=== PATIENT | female | born 1995 | race Caucasian/White ===

== ENCOUNTER 2021-11-09 18:43 | Inpatient (IN) | payer BC ==
[~2021-11-09 18:43] MED LIST: Bupivacaine 0.25% HCL 30 ML VIAL ONE
[2021-11-09] MEDS ORDERED: Acetaminophen 500 MG TAB PO PRN (19:24)
[2021-11-09] MEDS ORDERED: Methylergonovine 0.2 MG/ML VIAL IM PRN (19:24)
[2021-11-09] MEDS ORDERED: Ibuprofen 800 MG TAB PO PRN (19:24)
[2021-11-09] MEDS ORDERED: HYDROcodone/Acetaminophen 5/325 mg Tablet PO PRN ×2 (19:24)
[2021-11-09] MEDS ORDERED: Carboprost 250 MCG/ML AMP IM PRN (19:24)
[2021-11-09] MEDS ORDERED: Lidocaine 1% (PF) 30 ML VIAL SC PRN (19:24)
[2021-11-09] MEDS ORDERED: Misoprostol 200 MCG TAB PR PRN (19:24)
[2021-11-09] MEDS ORDERED: Butorphanol Tartrate 1 MG/ML VIAL SLOW IVP PRN (19:24)
[2021-11-09] MEDS ORDERED: Diphenoxylate HCl/Atropine Tablet PO PRN ×2 (19:24)
[2021-11-09] MEDS ORDERED: hydrALAZINE 20 MG/ML VIAL SLOW IVP PRN (19:24)
[2021-11-09] MEDS ORDERED: Ondansetron PF 4 MG/2 ML Vial IVP PRN ×2 (19:24→20:55)
[2021-11-09] MEDS ORDERED: Promethazine HCl 25 MG/ML VIAL IM PRN ×2 (19:24→20:55)
[2021-11-09] MEDS: Lactated Ringer's 1,000 ML IV SCH ×2 (19:30→20:30)
[2021-11-09] MEDS ORDERED: Fentanyl 2 mcg/Bup 0.1% Cadd 100 ML ONE (19:31)
[2021-11-09 19:51] VITALS: BMI 27.4
[2021-11-09 19:59] LABS: Hemoglobin 11.8 g/dL (12.0-15.5); Mean Corpuscular HGB CONC 34.5 g/dL (32.0-36.0); Mean Corpuscular Hemoglobin 30.6 pg (27.0-33.0); Mean Corpuscular Volume 88.8 fl (81.6-98.3); Mean Platelet Volume 10.1 fl (7.4-10.4); Platelet Count 199 10x3/uL (150-450); RBC Distribution Width 12.5 % (11.5-14.5); Red Blood Cell (RBC) Count 3.85 10x6/uL (3.90-5.03); White Blood Cell (WBC) Count 16.7 10x3/uL (3.5-10.5)
[2021-11-09 20:32] LABS: HBSAg Index 0.17 S/CO (0-0.99); Hep B Surf Ag Non-Reactive S/CO (NonReactive); Syphilis Antibody Nonreactive (Nonreactive); Syphilis Antibody Index 0.02 S/CO (<1.00 Non-Reactive)
[2021-11-09] MEDS ORDERED: Hydrocerin (Eucerin) Cream 120 gm Jar TOP PRN (20:55)
[2021-11-09] MEDS ORDERED: diphenhydrAMINE 50 MG/ML VIAL IVP PRN (20:55)
[2021-11-09] MEDS ORDERED: Naloxone HCl 0.4 mg/ml Vial IVP PRN ×2 (20:55)
[2021-11-09] MEDS ORDERED: ePHEDrine Sulfate 50 MG/10 ML VIAL SLOW IVP PRN (20:55)
[2021-11-09] MEDS ORDERED: Acetaminophen 325 MG TAB PO PRN (20:55)
[2021-11-09] MEDS ORDERED: Lactated Ringer's 500 ML IV PRN (20:55)
[2021-11-09] MEDS ORDERED: Communication Order-Pharmacy FS SCH (21:00)
[2021-11-09] MEDS ORDERED: Fentanyl 2 mcg/Bupivacaine 0.1% Cassette 100 ML EPIDURAL SCH (21:00)
[2021-11-09] MEDS ORDERED: Lidocaine 1% (PF) 30 ML VIAL ONE (22:45)
[2021-11-09] MEDS: NS w/ Oxytocin 30 units 500 ML IV SCH (23:25)
[2021-11-10] MEDS: NS w/ Oxytocin 30 units 500 ML IV SCH (00:33)
[2021-11-10] MEDS ORDERED: diphenhydrAMINE 25 MG CAP PO PRN (02:03)
[2021-11-10] MEDS ORDERED: Methylergonovine 0.2 MG/ML VIAL IM PRN (02:03)
[2021-11-10] MEDS ORDERED: hydrALAZINE 20 MG/ML VIAL SLOW IVP PRN (02:03)
[2021-11-10] MEDS ORDERED: Preparation H Ointment 28 GM TUBE PR PRN (02:03)
[2021-11-10] MEDS ORDERED: Misoprostol 200 MCG TAB VAG PRN (02:03)
[2021-11-10] MEDS ORDERED: Ondansetron PF 4 MG/2 ML Vial IVP PRN (02:03)
[2021-11-10] MEDS ORDERED: Boostrix 0.5 ML (Tdap) VIAL IM ONE (02:03)
[2021-11-10] MEDS ORDERED: Promethazine HCl 25 MG/ML VIAL IM PRN (02:03)
[2021-11-10] MEDS ORDERED: Milk Of Magnesia 30 ML UDCUP PO PRN (02:03)
[2021-11-10] MEDS ORDERED: Bisacodyl 10 MG SUPP PR PRN (02:03)
[2021-11-10] MEDS ORDERED: Lanolin Ointment 7 GM TUBE TOP PRN (02:03)
[2021-11-10] MEDS ORDERED: NS w/ Oxytocin 30 units 500 ML IV SCH (02:30)
[2021-11-10] MEDS: Ibuprofen 800 MG TAB PO SCH ×3 (05:45→21:12)
[2021-11-10 08:01] LABS: SARS-CoV-2 PCR by NAA Not Detected (NotDetected)
[2021-11-10] MEDS: Ferrous Sulfate 325 MG TAB PO SCH ×2 (08:27→15:24)
[2021-11-10] MEDS: Prenatal Vitamin 1 TAB PO SCH (08:32)
[2021-11-10] MEDS: Docusate Calcium (SURFAK) 240 MG CAP PO SCH ×2 (08:33→21:12)
[2021-11-11] MEDS: Ibuprofen 800 MG TAB PO SCH (05:45)
[2021-11-11] MEDS: Ferrous Sulfate 325 MG TAB PO SCH (07:34)
[2021-11-11 08:05] VITALS: BP 120/68; TEMP 97.6
[2021-11-11] MEDS: Prenatal Vitamin 1 TAB PO SCH (09:21)
[2021-11-11] MEDS: Docusate Calcium (SURFAK) 240 MG CAP PO SCH (09:21)
[2021-11-11] MEDS ORDERED: FLU VACC QS2021-22(6MOS UP)/PF 60 MCG/0.5 ML SYRINGE IM ONE (10:45)
== END 2021-11-11 13:35 | disposition home or self-care (01) | DRG 807 ==
LOC: CSHLD/OP 18:43 → CSHLD 19:27 → CSHPP 11-10 02:16
PROVIDERS: ADMIT Obstetrics & Gynecology; ATTEND Obstetrics & Gynecology
PROC: 10E0XZZ Delivery of Products of Conception, External Approach (ICD-10-PCS; principal; 2021-11-09)
PROC: 30233S1 Transfusion of Nonautologous Globulin into Peripheral Vein, Percutaneous Approach (ICD-10-PCS; 2021-11-10)
DX: O99.344 Other mental disorders complicating childbirth (principal); Z37.0 Single live birth; Z3A.38 38 weeks gestation of pregnancy; F41.9 Anxiety disorder, unspecified; Z20.822 Contact with and (suspected) exposure to COVID-19; Z87.891 Personal history of nicotine dependence
CPT/HCPCS: 51702; 85027; 85461; 86780; 86850; 86870; 86900; 86901; 87340; 90384; 90471; 90686; 96372; 99285; G0008; J2590; J7120; U0003; U0005